=== PATIENT | male | born 1950 | race Caucasian/White ===

== ENCOUNTER 2017-07-27 06:17 | Day surgery (SDC) | payer MEDICARE, SELFPAY ==
--- NOTE | 2017-07-27 | LES_PTH ---
PATIENT: JOHNNY RODRIGUES I LOC: [facility] [place]#:[id number] AGE/SX: 67/M ROOM: RE07/27/[address]: Dr. Daquan Reardon MD : [id number] BED: DIS: 07/27/2017 SPEC #: [id number] RECD: 07/27/17 14:24 STATUS: KRISTA ENRICO #: [id number] MAICOL: 07/27/17 00:[address]: Daquan Reardon DEPT: SURGICAL PATHOLOGY RECD BY: Deo Washington ENTERED: 07/27/17 14:25 SP TYPE: Lesion OTHR DR: Dr. 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 2 cm glandular lesion, right nasal alar rim, excision: Pieces of skin with chronic inflammation, solar elastosis and sebaceous hyperplasia, clinically rhinophyma. Negative for malignancy. B. 3 cm glandular lesion, left nasal alar rim, excision: Pieces of skin with chronic inflammation, solar elastosis and sebaceous hyperplasia, clinically rhinophyma. Negative for malignancy. SJ:misty 07/28/17 COMMENT Clinical correlation and appropriate follow up are necessary. MICROSCOPIC DESCRIPTION Slides are reviewed. GROSS DESCRIPTION A - Received in fixative is one container labeled with the patient's name and designated 2 cm glandular lesion right nasal alar rim. The specimen consists of two irregular pieces of lugo-white skin measuring 3 x 2 x 0.2 cm and 2 x 1.5 x 1.2 cm. Also present in the container are multiple variable sized pieces of skin that in aggregate measure 4 x 3 x 0.2 cm. The entire specimen is submitted in five cassettes as follows: 1 & 2 ? smaller pieces of tissue, 3 ? intermediate sized piece of tissue, 4 & 5 ? largest piece of tissue. B - Received in fixative is one container labeled with the patient's name and designated 3 cm glandular lesion left nasal alar rim. The specimen consists of two irregular pieces of lugo-white skin measuring 2.2 x 1 x 0.2 cm and 2 x 1.5 x 0.2 cm. Also present in the container are multiple variable sized pieces of skin and soft tissue that in aggregate measure 3.5 x 3 x 0.5 cm. The two larger pieces are serially sectioned. The entire specimen is submitted in four cassettes as follows: 1 & 2 ? each cassette containing one larger piece, 3 & 4 ? rest of the specimen. / BETHANIE:misty 07/27/17 TC:5 CPT: 53770 x2
--- NOTE | 2017-07-27 00:37 | HP.PCM_ITS ---
History and Physical Date of Admission: 07/27/17 HISTORY OF PRESENT ILLNESS 67 year old man presents for evaluation for TBSE. He is concerned about lesions on his bilateral nasal alar areas that have increased in size over the last several months. He denies any recent infection. Denies any fever. Denies any bleeding. Denies any trauma. Denies any breathing problems. He presents at this time for further evaluation and treatment. PAST MEDICAL HISTORY Bone fractures - foot. Hearing problems. High cholesterol. Vision problems - wears glasses. PAST SURGICAL HISTORY None. MEDICATIONS Carboxymethylcellulose eye drops. Vitamin D3. ALLERGIES None. SOCIAL HISTORY Patient does not smoke. Patient drinks alcohol occasionally. FAMILY HISTORY Diabetes - Mother. Heart disease - Father. Seizures - Brother. Thyroid disease - Son. Skin cancer - Father. REVIEW OF SYSTEMS General - Denies fever, fatigue, and weight loss. ENT - Denies nasal congestion and sore throat. Eyes - Denies cataracts and glaucoma. Endocrine - Denies excessive thirst and urination. Skin - Has enlarging lesions bilateral nasal alar areas. Musculoskeletal - Denies joint pain, joint stiffness, weakness of muscles and joints, back pain, and arthritis. Neuro - Denies headaches. Cardiovascular - Denies chest pain, fatigue, shortness of breath with exertion. Psych - Denies anxiety and depression. Respiratory - Denies shortness of breath and cough. Gastrointestinal - Denies nausea, vomiting, diarrhea, and constipation. Hematologic - Denies abnormal bruising and bleeding. Genitourinary - Denies hematuria and urinary frequency. PHYSICAL EXAMINATION General - Alert and oriented. HEENT - PERRL. EOMI. Throat is clear. On his bilateral nasal alar areas are enlarged glandular lesions that measure 2 cm on the right and 3 cm on the left. The lesions extend up to the alar rims. There appears to be no extension into the external nasal vestibular area. No ulceration. There are irregular borders. Lesions are nontender. No evidence of infection at this time. Neck - Supple and nontender. No suspicious lesions noted. No cervical adenopathy. Lungs - Clear to auscultation. Heart - Regular rate and rhythm. Abdomen - Soft and nondistended. No suspicious lesions noted. Extremities - FROM. No suspicious lesions noted. Radial pulses are palpable. No axillary adenopathy. Back - No suspicious lesions noted. Neuro - CN II - XII grossly intact. ASSESSMENT 1. 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 2. 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 3. Family history of skin cancer. PLAN The glandular lesions on the patient's nasal alar rims are clinically consistent with rhinophyma. Recommend excision of these lesions and send them to Pathology for analysis to rule out carcinoma. There is no evidence of infection so will not need to send a culture unless pus is encountered at the time of surgery. The operative procedure needed for rhinophyma is excision and surgical planing of skin of nose. It is done into the dermis to allow re- epithelialization. CO2 laser will be needed to help with any residual bleeding and destruction of any residual glandular tissue. Will apply antibiotic ointment to the open wound initially. Will let it heal in secondarily. In a few days, should be able to apply Aquaphor lotion to help minimize soreness during the re-epithelialization process. Any problems encountered during the healing process, and further surgery with skin grafting can be done. Surgery will be done under general anesthesia on an outpatient basis. Depending on the amount of pain afterwards or the amount of bleeding seen at surgery, I may want him to spend the night with a surgical observation overnight stay in the hospital. Patient was informed of the risks and complications of the procedure including alternatives to surgery. These were discussed with him personally. He voices understanding and wishes to proceed. Some of the risks and complications were included in a form from the [employer] [employer].
[2017-07-27 06:47] VITALS: BP 119/52; PULSE 75; RESP 18; TEMP 36.6; O2SAT 98; BMI 29.2
[2017-07-27] MEDS: Clindamycin 900 MG/50 ML BAG 75 MG IV (07:51)
[2017-07-27] MEDS: Mupirocin Ointment 22gm Tube 1 APPLIC (08:26)
--- NOTE | 2017-07-27 09:23 | PCM.IMDPSTOP ---
Immediate Post-Op Note Date of Procedure: 07/27/17 Primary Surgeon/Physician: Daquan Reardon calibration technician: None Pre-Operative Diagnosis: 1. 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 2. 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 3. Family history of skin cancer. Post-Operative Diagnosis: Same. Surgery/Procedure Performed:: Excision and surgical planing skin of nose (right nasal alar rim and left nasal alar rim) for rhinophyma with CO2 laser resurfacing. Description of Surgical Findings:: 67 year old man presents for evaluation for TBSE. He is concerned about lesions on his bilateral nasal alar areas that have increased in size over the last several months. He denies any recent infection. Denies any fever. Denies any bleeding. Denies any trauma. Denies any breathing problems. Today the patient underwent excision and surgical planing skin of nose (right nasal alar rim and left nasal alar rim) for rhinophyma with CO2 laser resurfacing. Size of defect right nasal alar rim area - 4 x 2 cm. Size of defect left nasal alar rim area - 4 x 2 cm. I used [employer] CORE Fractional CO2 Laser. Classic [place] Pattern. Power - 7 mJ. Fluence - 39.5 J/cm2. Density - 100%. Spot Size - 8 mm. Estimated Blood Loss: 25 ml. Specimen's removed: 1. Rhinophyma right nasal alar rim to Pathology. 2. Rhinophyma left nasal alar rim to Pathology. Drains: None. Type of Anesthesia:: General - Admit VTE Documentation VTE Present on Admission: No VTE Mechan Device Prophylaxis: SCD's VTE Pharm Prophylaxis ordered?: No
[2017-07-27 09:24] VITALS: BP 119/52; BP 90/56; PULSE 80; RESP 16; TEMP 36; O2SAT 97
--- NOTE | 2017-07-27 09:26 | OP.PN_ITS ---
Immediate Post-Op Note Date of Procedure: 07/27/17 Primary Surgeon/Physician: Daquan Reardon threader operator: None Pre-Operative Diagnosis: 1. 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 2. 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 3. Family history of skin cancer. Post-Operative Diagnosis: Same. Surgery/Procedure Performed:: Excision and surgical planing skin of nose (right nasal alar rim and left nasal alar rim) for rhinophyma with CO2 laser resurfacing. Description of Surgical Findings:: 67 year old man presents for evaluation for TBSE. He is concerned about lesions on his bilateral nasal alar areas that have increased in size over the last several months. He denies any recent infection. Denies any fever. Denies any bleeding. Denies any trauma. Denies any breathing problems. Today the patient underwent excision and surgical planing skin of nose (right nasal alar rim and left nasal alar rim) for rhinophyma with CO2 laser resurfacing. Size of defect right nasal alar rim area - 4 x 2 cm. Size of defect left nasal alar rim area - 4 x 2 cm. I used [employer]on CORE Fractional CO2 Laser. Classic [place] Pattern. Power - 7 mJ. Fluence - 39.5 J/cm2. Density - 100%. Spot Size - 8 mm. Estimated Blood Loss: 25 ml. Specimen's removed: 1. Rhinophyma right nasal alar rim to Pathology. 2. Rhinophyma left nasal alar rim to Pathology. Drains: None. Type of Anesthesia:: General - Admit VTE Documentation VTE Present on Admission: No VTE Mechan Device Prophylaxis: SCD's VTE Pharm Prophylaxis ordered?: No
--- NOTE | 2017-07-27 09:34 | PCM.DC ---
You will use the following diet at home:: No restrictions Discharge Activity: May not drive while taking narcotic pain medications., May Shower - in 2 days., - - keep head elevated. no heavy lifting. May resume sexual activity in: No Restrictions Ice area for (Minutes): 5 - as needed for facial swelling. Weight Bearing Status: Weight bearing as tolerated Lifting Restrictions: 10 lbs. Keep extremity elevated above heart level: - - head elevated. Call your doctor if your incision/area has: Continuous Slow Oozing, Sudden Increased Bleeding, Increased Pain/ Swelling, Increased Redness, Foul Smelling Discharge, Swelling at the incision site Call your doctor if you observe: Fever of 101 or Higher, Coldness, Increased Pain, Shortness of breath, Chest pain, Calf discomfort, Uncontrolled pain Suture Line Care: - - bactroban to nasal wounds twice a day. Change Dressing in (Days):: 2 - will change in office. Cleanse incision/area with: - - may shower in two days. Allergies/Adverse Reactions: Allergies No Known Allergies Allergy (Verified 06/24/17 09:09) Medications to take at Discharge carboxymethylcellulose sodium eye drops 1 drp OPHTHALMIC TID ml 04/23/17 Cholecalciferol (Vitamin D3) [Vitamin D3] 5,000 unit PO DAILY 06/24/17 Clindamycin [Cleocin] 300 mg PO TID #21 cap 07/27/17 L. Acidophilus/Pectin, Greenlee [Acidophilus-Pectin Captab] 1 ea PO BID #20 tab 07/27/17 Mupirocin [Bactroban] 1 applic TOPICAL BID #4 tube 07/27/17 Oxycodone HCl/Acetaminophen [Percocet 5/325] 1 - 2 tab PO 4X/DAY PRN PRN 5 Days #40 tab 07/27/17 Valacyclovir HCl [Valtrex] 500 mg PO BID #14 tab 07/27/17 The following prescriptions were given: Oxycodone HCl/Acetaminophen [Percocet 5/325] 1 - 2 tab PO 4X/DAY PRN PRN 5 Days #40 tab PRN Reason: Pain L. Acidophilus/Pectin, Greenlee [Acidophilus-Pectin Captab] 1 ea PO BID #20 tab Mupirocin [Bactroban] 1 applic TOPICAL BID #4 tube Valacyclovir HCl [Valtrex] 500 mg PO BID #14 tab Clindamycin [Cleocin] 300 mg PO TID #21 cap Primary Care Physician: Vivi Hester MD [Primary Care Provider] - Please Follow Up With: Daquan Reardon MD When: 2-3 days. call [phone] for appt. Proposed Discharge Date: 07/27/17
[2017-07-27 09:45] VITALS: BP 119/52; BP 96/58; PULSE 78; RESP 16; O2SAT 94
[2017-07-27 10:00] VITALS: BP 119/52; BP 93/63; PULSE 85; RESP 16; O2SAT 92
[2017-07-27 10:15] VITALS: BP 119/52; BP 97/69; PULSE 82; RESP 16; TEMP 36.3; O2SAT 93
[2017-07-27 10:42] VITALS: BP 119/52
--- NOTE | 2017-07-27 20:32 | PCM.OPRPT ---
Report of Operation Date of Procedure: 07/27/17 Pre-Operative Diagnosis: 1. 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 2. 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 3. Family history of skin cancer. Post-Operative Diagnosis: Same. Surgery/Procedure Performed:: Excision and surgical planing skin of nose (right nasal alar rim and left nasal alar rim) for rhinophyma with CO2 laser resurfacing. Description of Surgical Findings:: 67 year old man presents for evaluation for TBSE. He is concerned about lesions on his bilateral nasal alar areas that have increased in size over the last several months. He denies any recent infection. Denies any fever. Denies any bleeding. Denies any trauma. Denies any breathing problems. Patient was informed of the risks and complications of the procedure including alternatives to surgery. These were discussed with him personally. He voices understanding and wishes to proceed. Some of the risks and complications were included in a form from the [place] [employer]. Size of defect right nasal alar rim area - 4 x 2 cm. Size of defect left nasal alar rim area - 4 x 2 cm. I used [employer] CORE Fractional CO2 Laser. Classic [place] Pattern. Power - 7 mJ. Fluence - 39.5 J/cm2. Density - 100%. Spot Size - 8 mm. paper roll machine operator: None Type of Anesthesia:: General Specimen's removed: 1. Rhinophyma right nasal alar rim to Pathology. 2. Rhinophyma left nasal alar rim to Pathology. Drains: None. Estimated Blood Loss (mL): 25 ml. Description of Procedure: Patient was taken to OR in supine position and was placed under general anesthesia. His nose was prepped and draped in the usual fashion. SCD's were placed for DVT prophylaxis. Perioperative antibiotics were given intravenously. Using xylocaine with epinephrine, the areas of rhinophyma on his bilateral nasal alar rims were infiltrated. After waiting 5 minutes for the anesthetic to take effect, the procedure started. Using a scapel, I proceeded with excision and surgical planing of the rhinophyma into the subcutaneous tissue. Most of the enlarged glands were removed. Care was taken not to go too deep to expose the underlying cartilage. On the left side, there was extension of the rhinophyma onto the nasal alar rim. I also feathered the defect onto the nasal tip as there was the beginning of rhinophyma starting in this area as well. The specimens from each side were sent to Pathology separately for analysis to rule out the possibility of carcinoma. The size of the defects after the excision and surgical planing was 4 x 2 cm for each side. Hemostasis was obtained initially with electrocautery. I then used the CO2 laser for resurfacing and to help with hemostasis as well. I made sure there was moistened towels around the nose. Everybody in the room had protective laser eyewear. The patient's eyes were covered with the moistened towels. I used the [employer] CORE Fractional CO2 Laser. I used two passes of the laser. There was some overlap onto normal skin at the edges to help with feathering and contouring. After each pass, I rubbed any loose tissue off with a moistened gauze. After the laser treatment was completed, no active bleeding was seen. Good contouring was noted on the nose. No exposed cartilage was seen. I applied Xeroform gauze to the open wounds on the bilateral nasal alar rims. This was followed by antibiotic ointment. He will continue with antibiotic ointment daily over the Xeroform gauze until re-epithelialization has started. He can then change to Aquaphor ointment to the healing wounds a couple of times daily. He tolerated the procedure well and was sent to PACU in satisfactory condition. He will be sent home on antibiotics and pain medication and Valtrex to minimize a Herpes infection. He will keep his head elevated during the initial postop period. He will followup in the office in a couple of days for a Xeroform dressing change and for a wound check. Will discuss the pathololgy report in a week. Grafts/Implants Used: None. - Complications None. - Admit VTE Documentation VTE Present on Admission: No VTE Mechan Device Prophylaxis: SCD's VTE Pharm Prophylaxis ordered?: No Code Visit Surgery Charges CPT - 47850 ICD-10 - L71.1, Z80.8
--- NOTE | 2017-07-28 20:00 | OP.PCM_ITS ---
Report of Operation Date of Procedure: 07/27/17 Pre-Operative Diagnosis: 1. 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 2. 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 3. Family history of skin cancer. Post-Operative Diagnosis: Same. Surgery/Procedure Performed:: Excision and surgical planing skin of nose (right nasal alar rim and left nasal alar rim) for rhinophyma with CO2 laser resurfacing. Description of Surgical Findings:: 67 year old man presents for evaluation for TBSE. He is concerned about lesions on his bilateral nasal alar areas that have increased in size over the last several months. He denies any recent infection. Denies any fever. Denies any bleeding. Denies any trauma. Denies any breathing problems. Patient was informed of the risks and complications of the procedure including alternatives to surgery. These were discussed with him personally. He voices understanding and wishes to proceed. Some of the risks and complications were included in a form from the [place] [employer]. Size of defect right nasal alar rim area - 4 x 2 cm. Size of defect left nasal alar rim area - 4 x 2 cm. I used [employer] CORE Fractional CO2 Laser. Classic [place] Pattern. Power - 7 mJ. Fluence - 39.5 J/cm2. Density - 100%. Spot Size - 8 mm. banquet kitchen supervisor: None Type of Anesthesia:: General Specimen's removed: 1. Rhinophyma right nasal alar rim to Pathology. 2. Rhinophyma left nasal alar rim to Pathology. Drains: None. Estimated Blood Loss (mL): 25 ml. Description of Procedure: Patient was taken to OR in supine position and was placed under general anesthesia. His nose was prepped and draped in the usual fashion. SCD's were placed for DVT prophylaxis. Perioperative antibiotics were given intravenously. Using xylocaine with epinephrine, the areas of rhinophyma on his bilateral nasal alar rims were infiltrated. After waiting 5 minutes for the anesthetic to take effect, the procedure started. Using a scapel, I proceeded with excision and surgical planing of the rhinophyma into the subcutaneous tissue. Most of the enlarged glands were removed. Care was taken not to go too deep to expose the underlying cartilage. On the left side, there was extension of the rhinophyma onto the nasal alar rim. I also feathered the defect onto the nasal tip as there was the beginning of rhinophyma starting in this area as well. The specimens from each side were sent to Pathology separately for analysis to rule out the possibility of carcinoma. The size of the defects after the excision and surgical planing was 4 x 2 cm for each side. Hemostasis was obtained initially with electrocautery. I then used the CO2 laser for resurfacing and to help with hemostasis as well. I made sure there was moistened towels around the nose. Everybody in the room had protective laser eyewear. The patient's eyes were covered with the moistened towels. I used the [employer] CORE Fractional CO2 Laser. I used two passes of the laser. There was some overlap onto normal skin at the edges to help with feathering and contouring. After each pass, I rubbed any loose tissue off with a moistened gauze. After the laser treatment was completed, no active bleeding was seen. Good contouring was noted on the nose. No exposed cartilage was seen. I applied Xeroform gauze to the open wounds on the bilateral nasal alar rims. This was followed by antibiotic ointment. He will continue with antibiotic ointment daily over the Xeroform gauze until re-epithelialization has started. He can then change to Aquaphor ointment to the healing wounds a couple of times daily. He tolerated the procedure well and was sent to PACU in satisfactory condition. He will be sent home on antibiotics and pain medication and Valtrex to minimize a Herpes infection. He will keep his head elevated during the initial postop period. He will followup in the office in a couple of days for a Xeroform dressing change and for a wound check. Will discuss the pathololgy report in a week. Grafts/Implants Used: None. - Complications None. - Admit VTE Documentation VTE Present on Admission: No VTE Mechan Device Prophylaxis: SCD's VTE Pharm Prophylaxis ordered?: No Code Visit Surgery Charges CPT - 92106 ICD-10 - L71.1, Z80.8
== END 2017-07-27 10:48 | disposition home or self-care (01) ==
LOC: SDC 06:22 → AC 06:25
PROVIDERS: Family Provider Internal Medicine; PCP Internal Medicine; Visit Provider Surgery
PROC: (CPT 30120; principal; 2017-07-27 07:45)
DX: L71.1 Rhinophyma (principal); E78.00 Pure hypercholesterolemia, unspecified
CPT/HCPCS: 30120; 88305; J7120; J2405